=== PATIENT | female | born 1960 | race Caucasian/White ===

== ENCOUNTER → 2023-07-31 06:34 | Day surgery (SDC) | payer OTHER, SELFPAY | LOC: GI 06:34 | PROVIDERS: ATTENDING PHYSICIAN Internal Medicine Gastroenterology; FAMILY PHYSICIAN Family Medicine | DX: K44.9 Diaphragmatic hernia without obstruction or gangrene (principal); K31.7 Polyp of stomach and duodenum; R12 Heartburn | CPT/HCPCS: 43239; 88305 ==

== ENCOUNTER 2023-12-24 21:16 | Emergency (ER) | payer MEDICARE, OTHER, SELFPAY ==
[2023-12-24 21:20] VITALS: BP 136/84
--- NOTE | 2023-12-24 22:50 | ED.GENMED ---
History of Present Illness
General
Chief Complaint: Abdominal Pain
Time Seen by Provider: 12/24/23 22:18
History of Present Illness
History of Present Illness:
63-year-old female with history of common bile duct stone presenting to the emergency department for 5 days of lower abdominal pain. Pain has been constant. She has not tried any medications for pain. Reports associated chills and low-grade
fever. Denies any nausea or vomiting. Reports some soft stools. Denies blood in her stool. Reports history of and cholecystectomy. Also reports history of diverticulitis in the past. Denies any known sick contacts. Denies any
urinary complaints. Denies additional acute medical complaints.
Past History
Past History
ED Past Medical History: Psychiatric (Depression) and Other (Migraine)
ED Past Surgical History: Cholecystectomy, and Other (ERCP)
Social History
Tobacco: Non-smoker
Alcohol: None
Drug: None
Personal:
Living: with family
Employment: Employed
Family History
Family History: Other (n/c)
Phy Exam
Physical Exam
Physical Exam:
General: Well-appearing, no clinical signs of dehydration, nontoxic and in no acute distress
HEENT: protecting airway
Neck: appears supple
CV: Normal heart rate, regular rhythm, no evidence of cyanosis
Resp: No accessory muscle use, no increased work of breathing, lungs clear to auscultation bilaterally
Abd: Soft and non-distended, focal tenderness to the suprapubic abdomen left lower quadrant without rebound or guarding
Extremities: No deformities, no swelling, no erythema, pulses and sensation intact
Neuro: alert, no focal neurologic deficit
: deferred
Rectal: deferred
Psych: Normal affect
Skin: Intact
Course
Orders/Labs/Results
Orders:
Orders
12/24/23 22:37
CT Abd/pelvis W Iv Cont Urgent
Comment:
Reason For Exam: LLQ pain, suspected diverticulitis
Ketorolac [Toradol] 15 mg IV NOW STA
12/24/23 22:52
Complete Blood Count/With Diff Urgent
Comprehensive Metabolic Panel Urgent
Lipase Urgent
12/24/23 22:56
Urinalysis Reflex To Culture Urgent
Date Specimen was Collected: 12/24/23
Time Specimen was Collected: 22:55
Urine Microscopic Reflex Cult Urgent
12/24/23 23:02
Ketorolac [Toradol] 15 mg IV NOW STA
Abnormal Lab Results
12/24/23 12/24/23
22:52 22:56
RBC 3.76 L 10^6/uL
(4.20-5.40)
Hgb 11.5 L g/dL
(12.0-16.0)
Hct 30.8 L %
(37.0-47.0)
MCHC 37.3 H g/dL
(33.0-37.0)
Absolute Neuts (auto) 6.7 H 10^3/uL
(1.4-6.5)
Absolute Lymphs (auto) 0.9 L 10^3/uL
(1.2-3.4)
Neutrophils % 80.4 H %
(42.2-75.2)
Lymphocytes % 11.4 L %
(20.5-51.1)
Sodium 133 L mmol/L
(135-145)
Glucose 107 H mg/dl
(70-99)
Total Bilirubin 1.4 H mg/dl
(0.2-1.3)
Ur Occult Blood Reflex 1+ A
(Negative)
Leukocyte Esterase Rfl Trace A
(Negative)
Urine RBC 3-6 A /HPF
(0-2)
Urine Bacteria (Reflex) Few A
(Negative)
12/24/23 22:52
12/24/23 22:52
Vital Signs
Initial and Last Documented VS:
Initial Vital Signs
Temp Pulse Resp BP Pulse Ox
99.3 F 96 20 136/84 99
12/24/23 21:20 12/24/23 21:20 12/24/23 21:20 12/24/23 21:20 12/24/23 21:20
Last Documented Vital Signs
Temp Pulse Resp BP Pulse Ox
99.8 F 85 20 115/83 98
12/24/23 22:54 12/25/23 00:43 12/24/23 21:20 12/25/23 00:43 12/25/23 00:43
MDM/Problems Addressed
MDM/Problems Addressed:
63-year-old female with history of common bile duct stones and diverticulitis presenting with 5 days of lower abdominal pain with low-grade fever and chills. Vital signs within normal limits.
On exam, patient well-appearing, nontoxic, no acute distress. Benign cardiac and pulmonary exam. On abdominal exam, focal tenderness to the suprapubic abdomen and left lower quadrant region. No rebound or guarding. Patient reports history of
diverticulitis in the past. At this time most suspicious for diverticulitis. Enteritis versus urinary tract infection versus colitis is also a consideration. This reason we will obtain laboratory CT imaging. Toradol administered for pain.
01:00 -patient's labs relatively unremarkable. CT is consistent with acute diverticulitis. There is also mention of a lesion in the left hepatic lobe, patient made aware, advised outpatient imaging. Patient remains hemodynamically stable. Feel
stable for outpatient oral antibiotics. Patient agreeable to plan. Advised outpatient PCP follow-up. Strict return precautions communicated and patient verbalized understanding
*Critical Care Note
Total Time (30-74mins, 75-104mins- exclusive of procedures): Not Applicable
ED Attending Note
-
Portions of this chart may have been created with voice recognition software.� Occasional wrong word or��sound alike� substitutions may have occurred due to the inherent limitations of voice recognition software.
Discharge Plan
Departure
Prescriptions:
No Action
sumatriptan succinate [Imitrex] 100 MG tablet
100 mg PO DAILYPRN PRN (Reason: headache/migraine)
trazodone 50 MG tablet
25 mg PO HS
Referrals:
Mckayla Rooney NP [Family Provider] -
Interventions
Interventions:
*Risk Screen - Suicide Last Done: 12/24/23 21:20
*General Assessment Last Done: 12/24/23 21:20
*Neglect/Abuse Screening Last Done: 12/24/23 21:20
Discharge Date and Time
Print Language: QATARI
[2023-12-24] MEDS: TORADOL 15 MG IV (22:51)
[2023-12-24 22:54] VITALS: BP 130/83
[2023-12-24 23:03] LABS: % Basophils 0.4 % (0-2); % Eosinophils 0.8 % (0-6); % Immature Granulocytes 0.1 % (0-0.5); % Lymphocytes 11.4 % (20.5-51.1); % Monocytes 6.9 % (1.7-9.3); % Neutrophils 80.4 % (42.2-75.2); Absolute Eosinophils 0.1 10^3/uL (0-0.7); Absolute Lymphocytes 0.9 10^3/uL (1.2-3.4); Absolute Monocytes 0.6 10^3/uL (0.1-0.6); Absolute Neutrophils 6.7 10^3/uL (1.4-6.5); Hematocrit 30.8 % (37.0-47.0); Hemoglobin 11.5 g/dL (12.0-16.0); Mean Corp Hgb Conc. 37.3 g/dL (33.0-37.0); Mean Corpuscular Hgb 30.6 pg (27.0-31.0); Mean Corpuscular Volume 81.9 fL (81.0-99.0); Mean Platelet Volume 10.1 fL (7.4-10.4); Nucleated Red Blood Cells % 0 %; Platelet Count 206 10^3/uL (130-400); Red Blood Cell Count 3.76 10^6/uL (4.20-5.40); Red Cell Dist. Width 11.8 % (11.5-14.5); White Blood Cell Count 8.3 10^3/uL (4.8-10.8)
[2023-12-24 23:03] LABS: Urine Albumin Negative (Neg - Trace); Urine Bilirubin Negative (Negative); Urine Character Clear (Clear); Urine Color Yellow; Urine Glucose Negative (Negative); Urine Ketone Negative (Negative); Urine Leukocyte Trace (Negative); Urine Nitrite Negative (Negative); Urine Occult Blood 1+ (Negative); Urine Urobilinogen Negative (Neg - 1+)
[2023-12-24 23:11] LABS: Urine Bacteria Few (Negative)
[2023-12-24 23:17] LABS: ALT (SGPT) 14 U/L (0-35); AST (SGOT) 25 U/L (14-36); Albumin 4.3 g/dl (3.5-5.0); Alkaline Phosphatase 64 U/L (38-126); Blood Urea Nitrogen 16 mg/dl (7-17); Calcium 9.1 mg/dl (8.4-10.2); Carbon Dioxide 26 mmol/L (22-30); Chloride 102 mmol/L (98-107); Glucose 107 mg/dl (70-99); Lipase 223 U/L (23-300); Sodium 133 mmol/L (135-145); Total Bilirubin 1.4 mg/dl (0.2-1.3); Total Protein 6.7 g/dl (6.3-8.2); eGFR > 60.00
[2023-12-25 00:43] VITALS: BP 115/83
[2023-12-25] MEDS: AUGMENTIN 875 MG/125 MG 1 TABLET PO (01:10)
== END 2023-12-25 01:15 | disposition home or self-care (01) ==
LOC: EMR 21:16
PROVIDERS: EMERGENCY PHYSICIAN Student in an Organized Health Care Education/Training Program; FAMILY PHYSICIAN Nurse Practitioner Psychiatric/Mental Health
DX: R10.32 Left lower quadrant pain (principal); R50.9 Fever, unspecified; K57.92 Diverticulitis of intestine, part unspecified, without perforation or abscess without bleeding; F32.A Depression, unspecified; G43.909 Migraine, unspecified, not intractable, without status migrainosus; Z90.49 Acquired absence of other specified parts of digestive tract; Z91.011 Allergy to milk products; Z91.018 Allergy to other foods
CPT/HCPCS: 99285; 96374; 74177; 80053; 81003; 81015; 83690; 85025; Q9967

== ENCOUNTER 2024-09-10 06:20 | Day surgery (SDC) | payer MEDICARE, OTHER, SELFPAY | END 2024-09-10 09:27 | disposition home or self-care (01) | LOC: GI 06:20 | PROVIDERS: ATTENDING PHYSICIAN Internal Medicine Gastroenterology | DX: Z12.11 Encounter for screening for malignant neoplasm of colon (principal); D12.2 Benign neoplasm of ascending colon; K57.30 Diverticulosis of large intestine without perforation or abscess without bleeding; Z86.0100 Personal history of colon polyps, unspecified; Z87.19 Personal history of other diseases of the digestive system | CPT/HCPCS: 45385; 88305 ==

== ENCOUNTER → 2024-10-11 13:06 | Outpatient (REF) | payer MEDICARE, OTHER, SELFPAY | LOC: WDC 13:06 | PROVIDERS: ATTENDING PHYSICIAN Obstetrics & Gynecology Gynecology; FAMILY PHYSICIAN Family Medicine | DX: Z12.31 Encounter for screening mammogram for malignant neoplasm of breast (principal) | CPT/HCPCS: 77063; 77067 ==

== ENCOUNTER → 2024-10-22 12:48 | Outpatient (REF) | payer MEDICARE, OTHER, SELFPAY | LOC: RCS 12:48 | PROVIDERS: ATTENDING PHYSICIAN Family Medicine | DX: R00.2 Palpitations (principal); R53.82 Chronic fatigue, unspecified; I70.0 Atherosclerosis of aorta | CPT/HCPCS: 93017; 93306 ==

== ENCOUNTER → 2025-03-03 08:36 | Outpatient (REF) | payer MEDICARE, OTHER, SELFPAY | LOC: PAVMRI 08:36 | PROVIDERS: ATTENDING PHYSICIAN Internal Medicine; FAMILY PHYSICIAN Family Medicine | DX: I34.1 Nonrheumatic mitral (valve) prolapse (principal); I34.0 Nonrheumatic mitral (valve) insufficiency | CPT/HCPCS: 75561; 75565; A9585 ==